=== PATIENT | male | born 1955 | race Caucasian/White ===

== ENCOUNTER 2017-02-28 20:05 | Emergency (ER) | payer OTHER ==
[~2017-02-28] VITALS: Ht 185.4 cm; Wt 108.2 kg
[2017-02-28 20:21] VITALS: BP 146/88; PULSE 72; O2SAT 99
[2017-02-28 21:35] LABS: Mean Corpuscular Hemoglobin 31.1 pg (27.0-35.0); Mean Corpuscular Volume 91.4 fL (81-100); Platelet Count 117 bil/L (150-400)
[2017-02-28 22:06] LABS: BASOPHILS % (AUTO) 0 % (0-3); EOSINOPHILS % (AUTO) 4 % (0-5); MONOCYTES % (AUTO) 6 % (4-12); NEUTROPHILS % (AUTO) 66 % (40-74)
[2017-02-28 22:17] LABS: Magnesium 2.2 mg/dL (1.6-2.6)
--- NOTE | 2017-02-28 23:01 | ED.REPORT ---
HPI-General Illness Date of Service Feb 28, 2017 ED Provider: Doug Brooks DO Pt is a 61 year old male with a history of gout, liver transplant x2, and stage IV renal failure, who presents to the ED complaining of gout on his right 1st toe onset yesterday. He c/o associated right 1st toe pain and erythema. He denies any other symptoms. The pt reports that he was previously prescribed prednisone with relief for a gout attack of his left foot several weeks ago. Nursing Notes Stated Complaint: SEVERE GOUT PAIN Chief Complaint: Gout Nursing Notes Reviewed: Yes Allergies: Coded Allergies: NSAIDS (Non-Steroidal Anti-Inflamma (Verified Allergy, Intermediate, ) Scheduled Prednisone (PredniSONE) 20 Mg Tablet 40 MG PO DAILY General Time Seen by MD: 23:01 Chief Complaint Other (Gout) Hx Obtained From: Patient Arrived By: Walk-in Sudden in Onset?: No Onset Occurred: Yesterday Symptom Duration: Since onset Location: : Foot right Quality: Painful Radiation: : Does not radiate Severity: Current: Moderate Severity: Maximum: Moderate Recent Healthcare: No recent doctor visit, No recent hospitalization Similar Sx Previous: Yes Past Medical History Past Medical History Stage IV renal failure Gout Past Surgical History Liver transplant x2 Smoking History Unknown if Ever Smoker Social History Other Social History: Good social support Ambulatory Status Independent Review of Systems + right great toe pain + right great toe erythema Full Review of Systems Constitutional: Denies: Fever Respiratory: Denies: Non-productive cough, Shortness of breath Complete sys rev & neg: except as marked. Physical Exam Vital Signs Vital Signs Date Time Temp Pulse Resp B/P Pulse Ox O2 Delivery O2 Flow Rate FiO2 02/28/17 20:21 36.7 72 146/88 99 Room Air Initial VS: Reviewed Head / Eyes: Atraumatic, Normocephalic Neck: Supple, Full range of motion Respiratory: Breath sounds normal, Clear to auscultation, No respiratory distress Cardiovascular: Regular rate & rhythm, Heart sounds normal, Intact distal pulses Abdomen / GI: Soft, Non-tender Extremities: Vascular intact, Neuro intact Skin: Warm, Dry, No cyanosis Neurologic: Alert, Oriented, Nonfocal Psychiatric: Mood/affect normal, Behavior normal General/Constitutional: Awake, Alert Ankle / Foot: Neurologic intact, Vascular intact Erythema, tenderness, and warmth of the first MTP of the right foot Interpretation & Diagnostics Lab Results Interpretation Result Diagram: 02/28/17212702/28/172127 Test 02/28/17 21:28 02/28/17 21:29 White Blood Count 8.7th/mm3 (3.8-10.1) Red Blood Count 3.25mil/mm3 (4.40-5.80) Hemoglobin 10.1g/dL (13.8-17.2) Hematocrit 29.7% (41.0-50.0) Mean Corpuscular Volume 91.4fL (81-100) Mean Corpuscular Hemoglobin 31.1pg (27.0-35.0) Mean Corpuscular Hemoglobin Concent 34.0% (32.0-37.0) Red Cell Distribution Width 14.4% (12.3-15.4) Platelet Count 117bil/L (150-400) Neutrophils (%) (Auto) 66% (40-74) Lymphocytes (%) (Auto) 24% (14-46) Monocytes (%) (Auto) 6% (4-12) Eosinophils (%) (Auto) 4% (0-5) Basophils (%) (Auto) 0% (0-3) Sodium Level 138mEq/L (134-144) Potassium Level 5.2mEq/L (3.5-5.2) Chloride Level 103mEq/L (97-108) Carbon Dioxide Level 18mmol/L (18-29) Blood Urea Nitrogen 78mg/dL (8-27) Creatinine 3.28mg/dL (0.76-1.27) Estimat Glomerular Filtration Rate 21mL/min (>59) Glucose Level 85mg/dL (60-99) Uric Acid 7.7mg/dL (2.6-7.2) Calcium Level 8.8mg/dL (8.5-10.1) Magnesium Level 2.2mg/dL (1.6-2.6) Total Bilirubin 0.3mg/dL (0.0-1.2) Aspartate Amino Transf (AST/SGOT) 20U/L (0-50) Alanine Aminotransferase (ALT/SGPT) 36U/L (0-44) Alkaline Phosphatase 72U/L (25-160) Total Protein 7.1g/dL (6.4-8.4) Albumin 4.1g/dL (3.4-5.0) Hold Liz Top Tube Received (Received) Re-Eval/Medical Decision Med Decision/Clinical Course Patient states that his GFR has been down around 12 and his creatinine is usually around 4. Today it appears that the renal function is slightly improved. He is waiting to have a fistula placed, but is not currently on dialysis. I suspect because of his renal failure has count has been much more problematic. Prednisone was prescribed here as well as hydrocodone for severe pain. He is advised to stay off of NSAIDs and to follow-up with his PCP next week. Source of Hx: Old records Time of Eval: 23:56 Re-Evaluation/Progress Note: Informed pt of plan for treatment and discharged. Pt understands and agrees with plan for treatment and discharge. F/U instructions and RTER warnings given. All questions addressed. Counseled Regarding: Diagnosis, Need for follow-up, When/why to return to ED Discharge & Departure Primary Impression: Gout attack Gout site: toe Gout etiology: due to renal impairment Laterality: right Qualified Code: M10.371 - Gout due to renal impairment, right ankle and foot Additional Impressions: Chronic kidney disease Chronic kidney disease stage: stage 4 (severe) Qualified Code: N18.4 - Chronic kidney disease, stage 4 (severe) Anemia Anemia type: other cause Other causes of anemia: chronic disease, kidney Qualified Code: N18.9 - Chronic kidney disease, unspecified Disposition: Home Discharge Condition All VS Reviewed: Yes Condition: Stable Patient Instructions: Gout (ED) Additional Instructions: Thank you for trusting us with your medical care today and thank you for your patience. You are being prescribed prednisone and hydrocodone to help with the inflammation and pain of your gout attack. This is most certainly related to your kidney disease. Continue to avoid foods that trigger gout. Follow-up with your primary care provider early next week. Return to the ER for new or worsening symptoms Referrals: OTHER,PHYSICIAN (PCP) Kane Attestation Portions of this note were transcribed by Mireya Nguyễn. I, Dr. Brooks personally performed the history, physical exam and medical decision-making; I reviewed and confirmed the accuracy of the information in the transcribed note. Signed by: Kane Escalona, 02/28/17. copies to: PHYSICIAN Todd BROWN Gary R DO Feb 28, 2017 23:01 Mireya Sun Feb 28, 2017 23:57
[2017-03-01] MEDS ORDERED: HYDROcodone-APAP 10-325 mg PO ONE
[2017-03-01] MEDS ORDERED: PRE20 PO
[2017-03-01] MEDS ORDERED: predniSONE 20 mg Tablet PO ONE
[2017-03-01] MEDS ORDERED: _HYDROcodone/APAP 5-325 mg Tablet PO PRN
== END 2017-03-01 00:33 | disposition home or self-care (01) ==
LOC: SED 20:05
DX: M10.371 Gout due to renal impairment, right ankle and foot (principal); D64.9 Anemia, unspecified; N18.4 Chronic kidney disease, stage 4 (severe); Z88.6 Allergy status to analgesic agent